=== PATIENT | female | born 1945 | race Caucasian/White ===

== ENCOUNTER 2019-11-09 18:54 | Inpatient (IN) | payer OTHER, MEDICAID ==
[~2019-11-09] VITALS: Ht 152.4 cm; Wt 44.9 kg
[2019-11-09 19:05] VITALS: BP_SYST 142
--- NOTE | 2019-11-09 20:13 | NUR ---
Placed in room 07 . Placed on landfill gas plant field technician, blood pressure machine and pulse oximeter. To gown for exam. Side rails up. Report given to MELISSA DUNBAR
[2019-11-09] MEDS ORDERED: NS 1000 ML IV.SOLN IV ONE (20:30)
[2019-11-09] MEDS ORDERED: ACETAMINOPHEN 500 MG TABLET PO ONE (20:30)
--- NOTE | 2019-11-09 20:33 | NUR ---
Pt BIB EMS from [facility] with c/o fever and tachycardia. Pt nonverbal. Per daughter, pt baseline is eye tracking and smiling to daughter voice. Per EMS, pt was treated for UTI last week. Per EMS, pt has temperature of 101.6 en route. Pt arrives on 12L non-rebreather. Upon assessment, pt diaphoretic with use of accessory muscles with rhonci noted bilaterally. Will continue to monitor.
--- NOTE | 2019-11-09 20:57 | NUR ---
ER Dr. Craig at bedside examining patient.
--- NOTE | 2019-11-09 21:09 | NUR ---
PATIENT MOVED TO BED 1
[2019-11-09] MEDS ORDERED: ACETAMINOPHEN 650 MG SUPP.RECT RC ONE (21:15)
--- NOTE | 2019-11-09 21:16 | NUR ---
RT at bedside to assist with pt intubation.
--- NOTE | 2019-11-09 21:24 | NUR ---
Patient arrived with POLST stating DNR, family at bedside. Family requests change to full code. MD Craig at bedside. Respiratory therapy at bedside prior to placement. Size 7.5 ET tube placed by MD Craig. Cuff inflated with 7 cc air. Auscultation of breath sounds over bilateral chest wall. ET tube secured with holister. O2 sats 98% pulse ox. PCXR ordered to check tube placement.
[2019-11-09 21:39] LABS: HEMATOCRIT 47.2 % (36-48); HEMOGLOBIN 15.4 g/dL (12.0-16.0); MEAN CORPUSCULAR HEMOGLOBIN 31 pg (27-31); MEAN CORPUSCULAR HGB CONC 33 % (32-36); MEAN CORPUSCULAR VOLUME 96 fL (79.0-98.0); PLATELET COUNT (AUTO) 379 K/uL (130-430); RED BLOOD CELL COUNT(AUTO) 4.92 MIL/uL (4.2-6.2); RED CELL DISTRIBUTION WIDTH 16.5 % (9.0-15.0); WHITE BLOOD COUNT (AUTO) 29.7 K/uL (4.8-10.8)
--- NOTE | 2019-11-09 21:45 | NUR ---
MELISSA Jaramillo placed # 16 FR OG tube to pt. Placement checked by auscultation of instilled air into stomach and aspiration of gastric contents. Tubing taped in place to prevent dislodging. Patient tolerated well.
--- NOTE | 2019-11-09 21:47 | NUR ---
radiology at bedside.
[2019-11-09 21:56] LABS: ATYPICAL LYMPHOCYTES % 0 % (0-0); BASOPHILS % (MANUAL) 0 % (0-2); EOSINOPHILS % (MANUAL) 0 % (0-7); LYMPHOCYTES % (MANUAL) 6 % (20-46); METAMYELOCYTES % 2 % (0-0); MONOCYTES % (MANUAL) 5 % (0-11)
[2019-11-09 21:59] LABS: BAND % (MANUAL) 43 % (0-6)
--- NOTE | 2019-11-09 22:14 | NUR ---
Pt cleaned and bed linens changed. Pt tolerated well. Will continue to monitor.
[2019-11-09 22:28] LABS: ANION GAP 15 (5-15); CALCIUM 9.7 mg/dL (8.4-11.0); CREATININE 1.18 mg/dL (0.55-1.30); GLUCOSE 139 mg/dL (70-99); POTASSIUM 3.6 mmol/L (3.5-5.1); UREA NITROGEN, BLOOD 48 mg/dL (8-21)
[2019-11-09 22:33] LABS: ALANINE AMINOTRANSFERASE 34 U/L (12-78); ALBUMIN 3.4 g/dL (3.4-4.8); ASPARTATE AMINOTRANSFERASE 36 U/L (10-37); TOTAL BILIRUBIN 2.4 mg/dL (0.0-1.0)
--- NOTE | 2019-11-09 22:52 | NUR ---
# 16 FR Culver catheter with use of sterile technique. Bedside drainage bag placed below level of bladder. Patient unable to toilet self.
[2019-11-09 22:53] LABS: CHLORIDE 125 mmol/L (98-107); SODIUM SERUM 162 mmol/L (136-145)
[2019-11-09] MEDS ORDERED: VANCOMYCIN HCL 1,000 MG in NS 250 ML IV ONE (23:45)
[2019-11-09] MEDS ORDERED: PIPERACILLIN/TAZO 3.375 GM in NS 50 ML IV ONE (23:45)
[2019-11-10] VITALS (36 sets, daily range): BP systolic 86–148
[2019-11-10] MEDS ORDERED: ACET-2165 PO (00:12)
[2019-11-10] MEDS ORDERED: DOCU-144 PO (00:12)
[2019-11-10] MEDS ORDERED: VITD2000 PO (00:12)
[2019-11-10] MEDS ORDERED: FAMO20TA8 PO (00:12)
[2019-11-10] MEDS ORDERED: HYDR-4272 PO (00:12)
[2019-11-10] MEDS ORDERED: MULT-976 PO (00:12)
[2019-11-10] MEDS ORDERED: MOM PO (00:12)
[2019-11-10] MEDS ORDERED: ASCO500T20 PO (00:12)
[2019-11-10] MEDS ORDERED: LACT1CAP7 PO (00:12)
[2019-11-10] MEDS ORDERED: ONDA4TAB5 PO (00:12)
[2019-11-10] MEDS ORDERED: ZINC220T4 PO (00:12)
[2019-11-10] MEDS ORDERED: ARGI1POW17 PO (00:12)
[2019-11-10] MEDS ORDERED: SERT-131 PO (00:12)
[2019-11-10] MEDS ORDERED: NA P133E41 RC (00:12)
[2019-11-10] MEDS ORDERED: 0.45% NACL 1,000 ML IV SCH (00:12)
--- NOTE | 2019-11-10 00:13 | NUR ---
Medication reconciliation completed with information provided by fidencio marc order summary report. Any prior medication reconciliation on file was reviewed and corrected.
[2019-11-10] MEDS ORDERED: PANTOPRAZOLE SODIUM 40 MG/VIAL (PROTONIX) IVP ONE (00:15)
[2019-11-10] MEDS ORDERED: ACETAMINOPHEN 650 MG SUPP.RECT RC PRN (00:15)
--- NOTE | 2019-11-10 00:24 | NUR ---
Patient will be admitted to [facility]. Admitted to ICU unit. Will go to room ICU 7. Belongings list completed. Complete and up to date summary report printed. SBAR report to be given at bedside with opportunity for questions.
--- NOTE | 2019-11-10 00:34 | NUR ---
Transfer to ICU 7 via ACLS protocol. Licensed nurse present. IV present no signs or symptoms of infiltration.
[2019-11-10 00:45] LABS: BILIRUBIN,URINE 2+ (NEGATIVE); BLOOD, URINE 3+ (NEGATIVE); CLARITY/URINE SL CLOUDY (CLEAR); COLOR,URINE YELLOW (YELLOW); GLUCOSE,URINE NEGATIVE (NEGATIVE); KETONES,URINE NEGATIVE (NEGATIVE); LEUKOCYTE ESTERASE ,URINE 2+ (NEGATIVE); NITRITE, URINE NEGATIVE (NEGATIVE); PROTEIN URINE 2+ (NEGATIVE)
[2019-11-10] MEDS ORDERED: PIPERACILLIN/TAZOBACTAM 3.375 GM/VIAL (ZOSYN) IV ONE (00:56)
[2019-11-10] MEDS ORDERED: VANCOMYCIN HCL 1000 MG/VIAL IV ONE (00:57)
--- NOTE | 2019-11-10 01:15 | NUR ---
ICU ADMIT Pt is awake but only responsive to tactile stimuli. Pt is on the vent, tolerating current vent settings. ST on monitor. Multiple wounds noted. OG in place. Culver catheter in place and draining to gravity. IV to right hand 22g, and right AC 22g. Safety precautions in place, call light within reach. Will continue to monitor.
[2019-11-10 01:18] LABS: BACTERIA,URINE MANY /HPF (None Seen); WBC,URINE >100 /HPF (0-3)
--- NOTE | 2019-11-10 02:35 | NUR ---
SPOKE TO DR. ONUR MAYA aware of patients current vent settings and VSS. MD ordered to keep sat above 92% and ABG's in the morning. Current vent settings okay at this time. Will continue to monitor.
[2019-11-10] MEDS ORDERED: NACL IV ONE (07:15)
--- NOTE | 2019-11-10 07:30 | NUR ---
Opening Note Patient received awake and is easily arousable. Patient on collections manager with NSR. Patient intubated and on ventilator with settings AC 12, tidal volume 400, FiO2 50% breathing evenly and unlabored. Patient has two peripheral IV sites receiving fluids at this time. Patient with OGT patent and clamped. Patient has a cardenas catheter draining yellow urine at this time. Skin non-intact. Safety precautions enforced.
[2019-11-10 07:52] LABS: BASOPHILS % (AUTO) 0.1 % (0.0-2.0); EOSINOPHILS % (AUTO) 0.1 % (0.0-4.0); HEMOGLOBIN 12.6 g/dL (12.0-16.0); LYMPHOCYTES # (AUTO) 1.6 K/uL (1.0-5.5); LYMPHOCYTES % (AUTO) 5.7 % (20.5-51.5); MEAN CORPUSCULAR HEMOGLOBIN 31 pg (27-31); MEAN CORPUSCULAR HGB CONC 32 % (32-36); MEAN CORPUSCULAR VOLUME 96 fL (79.0-98.0); MONOCYTES # (AUTO) 0.7 K/uL (0.0-1.0); MONOCYTES % (AUTO) 2.7 % (1.7-9.3); NEUTROPHILS # (AUTO) 25.3 K/uL (1.8-7.7); NEUTROPHILS % (AUTO) 91.4 % (40.0-70.0); PLATELET COUNT (AUTO) 234 K/uL (130-430); RED BLOOD CELL COUNT(AUTO) 4.05 MIL/uL (4.2-6.2); RED CELL DISTRIBUTION WIDTH 16.5 % (9.0-15.0); WHITE BLOOD COUNT (AUTO) 27.7 K/uL (4.8-10.8)
[2019-11-10 08:06] LABS: ANION GAP 11 (5-15); CALCIUM 8.6 mg/dL (8.4-11.0); CREATININE 1.09 mg/dL (0.55-1.30); GLUCOSE 109 mg/dL (70-99); POTASSIUM 3.1 mmol/L (3.5-5.1); UREA NITROGEN, BLOOD 44 mg/dL (8-21)
[2019-11-10 08:17] LABS: ALANINE AMINOTRANSFERASE 24 U/L (12-78); ALBUMIN 2.5 g/dL (3.4-4.8); ASPARTATE AMINOTRANSFERASE 25 U/L (10-37); TOTAL BILIRUBIN 2.7 mg/dL (0.0-1.0)
[2019-11-10 08:18] LABS: SODIUM SERUM 161 mmol/L (136-145)
[2019-11-10 08:19] LABS: CHLORIDE 128 mmol/L (98-107)
--- NOTE | 2019-11-10 08:26 | NUR ---
FLIGHT PURSER PAGED PAGED KEELEY MELO AT [phone] SPOKE [facility] DINA.
--- NOTE | 2019-11-10 08:29 | NUR ---
INTERNAL MEDICINE CALLED TIGIST CAMPO PAGED AT [phone] SPOKE WITH ANNALISE.
--- NOTE | 2019-11-10 09:41 | NUR ---
Nutrition Update Garland Scale 13 noted. Pt admitted for acute respiratory failure, pneumonia, UTI. Diet: NPO BMI: 19.3 kg/m2 RD to follow per nutrition care standards.
--- NOTE | 2019-11-10 09:50 | NUR ---
MD Rounds Dr. Méndez at bedside for examination. New orders received.
[2019-11-10] MEDS ORDERED: POTASSIUM CHLORIDE 40 MEQ in D5W 250 ML IV ONE (10:15)
[2019-11-10] MEDS: D5W 1,000 ML IV SCH ×2 (10:25→21:35)
--- NOTE | 2019-11-10 12:00 | NUR ---
RN Rounds Patient resting in bed at this time. Patient in no signs of distress. Safety precautions enforced, call light in reach.
[2019-11-10] MEDS ORDERED: ONDANSETRON HCL 4 MG/2 ML VIAL IVP PRN (13:45)
[2019-11-10] MEDS: FAMOTIDINE PF 20 MG/2 ML VIAL IVP SCH (14:19)
--- NOTE | 2019-11-10 14:30 | NUR ---
Wound Care Wound care performed as ordered. New dressing c/d/i. Patient in no signs of distress at this time.
--- NOTE | 2019-11-10 16:00 | NUR ---
RN Rounds Patient remains resting at this time, no signs of acute distress noted.
[2019-11-10] MEDS ORDERED: IPRATROPIUM BROM 0.5 MG/2.5 ML VIAL.NEB (ATROVENT) INH PRN (18:15)
[2019-11-10] MEDS ORDERED: ALBUTEROL SULFATE 0.083% 2.5 MG/3 ML VIAL.NEB INH PRN (18:15)
[2019-11-10] MEDS: PIPERACILLIN/TAZO 2.25G/DEX-IS 50 ML IV SCH (18:22)
[2019-11-10] MEDS: ALBUTEROL SULFATE 0.083% 2.5 MG/3 ML VIAL.NEB INH SCH (19:00)
[2019-11-10] MEDS: IPRATROPIUM BROM 0.5 MG/2.5 ML VIAL.NEB (ATROVENT) INH SCH (19:00)
--- NOTE | 2019-11-10 19:34 | NUR ---
Opening Note: Patient received with HOB in upright position, oxygen saturation at 100%, no abnormal temperature, not complaining of pain, but in restraints due to interfering with her medical medical treatment. Will continue to monitor.
--- NOTE | 2019-11-10 19:42 | NUR ---
Closing Note Patient endorsed to assembler 1st shift RN using SBAR.
[2019-11-10] MEDS: LEVOFLOXACIN 250 MG/D5W 50 ML IV SCH (21:36)
[2019-11-11] VITALS (33 sets, daily range): BP systolic 84–148
[2019-11-11] MEDS: PIPERACILLIN/TAZO 2.25G/DEX-IS 50 ML IV SCH ×5 (00:14→23:53)
[2019-11-11] MEDS: IPRATROPIUM BROM 0.5 MG/2.5 ML VIAL.NEB (ATROVENT) INH SCH ×4 (01:09→19:00)
[2019-11-11] MEDS: ALBUTEROL SULFATE 0.083% 2.5 MG/3 ML VIAL.NEB INH SCH ×4 (01:09→19:00)
[2019-11-11] MEDS: D5W 1,000 ML IV SCH ×2 (06:31→18:00)
[2019-11-11 07:14] LABS: BASOPHILS # (AUTO) 0.1 K/uL (0.0-0.2); BASOPHILS % (AUTO) 0.2 % (0.0-2.0); EOSINOPHILS # (AUTO) 0.3 K/uL (0.0-0.4); EOSINOPHILS % (AUTO) 1.4 % (0.0-4.0); HEMATOCRIT 30.7 % (36-48); HEMOGLOBIN 10.3 g/dL (12.0-16.0); LYMPHOCYTES # (AUTO) 1.7 K/uL (1.0-5.5); LYMPHOCYTES % (AUTO) 7.5 % (20.5-51.5); MEAN CORPUSCULAR HEMOGLOBIN 32 pg (27-31); MEAN CORPUSCULAR HGB CONC 33 % (32-36); MEAN CORPUSCULAR VOLUME 95 fL (79.0-98.0); MONOCYTES # (AUTO) 0.6 K/uL (0.0-1.0); MONOCYTES % (AUTO) 2.6 % (1.7-9.3); NEUTROPHILS # (AUTO) 19.9 K/uL (1.8-7.7); PLATELET COUNT (AUTO) 188 K/uL (130-430); RED BLOOD CELL COUNT(AUTO) 3.24 MIL/uL (4.2-6.2); RED CELL DISTRIBUTION WIDTH 16.4 % (9.0-15.0); WHITE BLOOD COUNT (AUTO) 22.5 K/uL (4.8-10.8)
[2019-11-11 07:27] LABS: ALANINE AMINOTRANSFERASE 18 U/L (12-78); ANION GAP 11 (5-15); ASPARTATE AMINOTRANSFERASE 25 U/L (10-37); CALCIUM 8.1 mg/dL (8.4-11.0); CHLORIDE 116 mmol/L (98-107); GLUCOSE 102 mg/dL (70-99); SODIUM SERUM 147 mmol/L (136-145); TOTAL BILIRUBIN 1.7 mg/dL (0.0-1.0); UREA NITROGEN, BLOOD 27 mg/dL (8-21)
[2019-11-11 07:38] LABS: POTASSIUM 2.9 mmol/L (3.5-5.1)
[2019-11-11 07:43] LABS: NEUTROPHILS % (AUTO) 88.3 % (40.0-70.0)
--- NOTE | 2019-11-11 08:00 | NUR ---
PATIENT WAS ACCEPTED ORAL INTUBATED ALSO BILATERAL SOFT WRIST RESTRAINT , NEEDED PATIENT WILL PULL OUT TUBE AND LINE , COLOR PALE SKIN WARM AND DRY PATIENT WILL RESPOND TO VEBRAL COMMANDS WILL NODE HER HEAD NOTICE LEAKAGE OF THE A/C INT, WILL PULL OUT, HAS AN UPPER PICC LINE AND RIGHT HAND NO22G, ALL PATENT , STABLE 1200 NO CHANGES FAMILY AT BEDSIDE, ALARMING THE VENT NO SEDATION , WILL CALL DOCTOR ANIA SEDATION MEDS ORDER ATIVAN ONE MG IV Q ONE HR. 1630 ATIVAN ONE MG IV GIVEN 1730 REPEAT ATAVIN ONE MG IV WAS GIVEN , STABLE WILL CONTINUED WITH PLAN OF CARE, STABLE PATIENT WAS POSITIVE FOR MRSA OF THE NARE WAS PLACE IN ISOLATION , STABLE
--- NOTE | 2019-11-11 09:05 | NUR ---
RT NOTES Vent settings to Vt 360 35% per Dr Sifuentes's order.
[2019-11-11] MEDS ORDERED: POTASSIUM CHLORIDE 40 MEQ in D5W 250 ML IV ONE (12:30)
[2019-11-11] MEDS: LORazepam 2 MG/ML VIAL IVP PRN ×2 (16:27→17:26)
[2019-11-11] MEDS: FAMOTIDINE PF 20 MG/2 ML VIAL IVP SCH (16:36)
--- NOTE | 2019-11-11 19:35 | NUR ---
Opening Note: Patient received via SBAR supine with HOB in upright position, bed in lowest setting to the floor, with bilateral wrist restraints. Patient is not speaking nor answering questions, and does not appear to be in any pain.(FLACC SCALE) Sinus Rhythm, Normal Respirations, Oxygen Saturation at 100%. Will continue to monitor.
[2019-11-11] MEDS: LEVOFLOXACIN 250 MG/D5W 50 ML IV SCH (20:37)
[2019-11-12] VITALS (35 sets, daily range): BP systolic 90–148
--- NOTE | 2019-11-12 04:00 | NUR ---
Wound Documentation: Pictures were taken of patient's wounds and will be filed.
--- NOTE | 2019-11-12 04:17 | NUR ---
CHG Bath CHG Bed Bath provided to patient along with repositioning, oral care, change of linens, and oral and Endotracheal suctioning. Patient tolerated care well. Will continue to monitor.
--- NOTE | 2019-11-12 07:15 | NUR ---
ENDORSEMENT Pt care endorsed to dayshift nurse using nursing SBAR.
[2019-11-12] MEDS: PIPERACILLIN/TAZO 2.25G/DEX-IS 50 ML IV SCH ×3 (07:29→17:24)
[2019-11-12] MEDS: D5W 1,000 ML IV SCH ×3 (07:30→22:28)
--- NOTE | 2019-11-12 07:30 | NUR ---
AM ASSESSMENT. PT MECHANICALLY VENTILATED, FIO2 35%, EYES OPENED TO TACTILE STIMULI, RESTRAINTS OFF, TEMP TAKEN IN NORMAL RANGE, ORAL HYGIENE RENDERED, IVF D5 WATER AT 100 ML PER HR, PICC IN PLACE, SITE CLEAR AND PATENT. LAW CATHETER DRAINING WELL. TURNED PT TO HER SIDE, INCONTINENT OF BOWEL, MODERATE AMOUNT, LOOSE IN CONSISTENCY , GOOD PERICARE DONE.
[2019-11-12] MEDS: ALBUTEROL SULFATE 0.083% 2.5 MG/3 ML VIAL.NEB INH SCH ×3 (07:55→19:57)
[2019-11-12] MEDS: IPRATROPIUM BROM 0.5 MG/2.5 ML VIAL.NEB (ATROVENT) INH SCH ×3 (07:55→19:57)
--- NOTE | 2019-11-12 08:19 | NUR ---
RT NOTES Per Dr Sifuentes's order FIO2 to 30%. No adverse reactions noted.
--- NOTE | 2019-11-12 09:00 | NUR ---
FAMILY. MET PT'S SON MELINDA, SAID HE HAD NOT SEEN HER FOR OVER A YEAR, HIS SISTER RONNIE HAD CALLED HIM ABOUT HER. CURRENT PT'S STATUS GIVEN.
[2019-11-12 09:56] LABS: BASOPHILS % (AUTO) 0.3 % (0.0-2.0); EOSINOPHILS # (AUTO) 0.4 K/uL (0.0-0.4); EOSINOPHILS % (AUTO) 3.1 % (0.0-4.0); HEMATOCRIT 30.7 % (36-48); HEMOGLOBIN 10.1 g/dL (12.0-16.0); LYMPHOCYTES # (AUTO) 1.9 K/uL (1.0-5.5); LYMPHOCYTES % (AUTO) 13.3 % (20.5-51.5); MEAN CORPUSCULAR HEMOGLOBIN 31 pg (27-31); MEAN CORPUSCULAR HGB CONC 33 % (32-36); MEAN CORPUSCULAR VOLUME 95 fL (79.0-98.0); MONOCYTES # (AUTO) 0.5 K/uL (0.0-1.0); MONOCYTES % (AUTO) 3.6 % (1.7-9.3); NEUTROPHILS # (AUTO) 11.1 K/uL (1.8-7.7); NEUTROPHILS % (AUTO) 79.7 % (40.0-70.0); PLATELET COUNT (AUTO) 173 K/uL (130-430); RED BLOOD CELL COUNT(AUTO) 3.23 MIL/uL (4.2-6.2); WHITE BLOOD COUNT (AUTO) 13.9 K/uL (4.8-10.8)
[2019-11-12 10:13] LABS: ALANINE AMINOTRANSFERASE 22 U/L (12-78); ALBUMIN 2.1 g/dL (3.4-4.8); ANION GAP 9 (5-15); ASPARTATE AMINOTRANSFERASE 27 U/L (10-37); CHLORIDE 109 mmol/L (98-107); CREATININE 0.61 mg/dL (0.55-1.30); GLUCOSE 83 mg/dL (70-99); POTASSIUM 3.3 mmol/L (3.5-5.1); SODIUM SERUM 140 mmol/L (136-145); UREA NITROGEN, BLOOD 12 mg/dL (8-21)
[2019-11-12] MEDS: MUPIROCIN 1 GM OIN.PF.APP NS SCH ×2 (11:26→22:30)
[2019-11-12] MEDS ORDERED: POTASSIUM CHLORIDE 30 MEQ in NS 250 ML IV ONE (12:00)
--- NOTE | 2019-11-12 12:41 | NUR ---
Dietitian Recommendations *Initiate nutrition support/alternate route of feeding in 24-48 hrs. *Recommend Vital AF 1.2 at 35ml/hr, Lopez BID via NGT. *Swallow eval once extubated. Please see Nutritional Assessment for details. DAHLIA LINK
[2019-11-12] MEDS: FAMOTIDINE PF 20 MG/2 ML VIAL IVP SCH (14:01)
--- NOTE | 2019-11-12 15:20 | NUR ---
WOUNDS. DRESSINGS REMOVED FROM UPPER BACK AND BUTTOCKS. WOUND CARE DONE, WASHED WITH SALINE THEN PAT DRY, HYDROGEL APPLIED TO WOUNDS AND COVERED WITH FOAM DRESSING, TURNED PT Q2H, ORAL CARE DONE NEEDED.
--- NOTE | 2019-11-12 15:40 | NUR ---
FAMILY. PT'S DAUGHTER RONNIE CAME IN TO VISIT, STATUS UPDATE ON PT, MRSA PRECAUTION/AWARENESS GIVEN.
--- NOTE | 2019-11-12 19:10 | NUR ---
REPORT. GIVEN TO ONCOMING NURSE.
--- NOTE | 2019-11-12 19:25 | NUR ---
OPENING NOTE SBAR REPORT RECEIVED FROM LOPEZ TORRES. CARE ASSUMED. PT ANO X1. PT LAYING IN BED INTUBATED. ETT SIZE 7.0 LIP LINE 21 VENT SETTINGS AC 12 TIDAL VOLUME 360 FiO2 30%. O2 SATURATION 100%. PT SINUS RHYTHM ON MONITOR. PT HAS RUE PICC LINE RUNNING D5W @ 70 CC/HR. PEDAL AND RADIAL PULSES NORMAL. PT HAS OG TUBE IN PLACE CLAMPED. ABDOMEN SOFT NON DISTENDED. PT HAS LAW CATHETER FLOWING TO GRAVITY. URINE CLEAR AND YELLOW. WOUND TO SACRUM AND RIGHT HIP AND RIGHT BUTTOCKS. DRESSINGS CLEAN DRY AND INTACT. BED LOCK IN LOWEST POSITION. SAFETY PRECAUTIONS IN PLACE. CALL LIGHT WITHIN REACH WILL CONTINUE TO MONITOR.
[2019-11-12] MEDS: LEVOFLOXACIN 250 MG/D5W 50 ML IV SCH (22:28)
[2019-11-13] VITALS (29 sets, daily range): BP systolic 95–157
[2019-11-13] MEDS: PIPERACILLIN/TAZO 2.25G/DEX-IS 50 ML IV SCH ×4 (00:59→17:12)
[2019-11-13] MEDS: IPRATROPIUM BROM 0.5 MG/2.5 ML VIAL.NEB (ATROVENT) INH SCH ×2 (01:20→19:48)
[2019-11-13] MEDS: ALBUTEROL SULFATE 0.083% 2.5 MG/3 ML VIAL.NEB INH SCH ×2 (01:30→19:48)
[2019-11-13 06:01] LABS: BASOPHILS % (AUTO) 0.1 % (0.0-2.0); EOSINOPHILS # (AUTO) 0.2 K/uL (0.0-0.4); EOSINOPHILS % (AUTO) 2.6 % (0.0-4.0); HEMATOCRIT 31.8 % (36-48); HEMOGLOBIN 10.7 g/dL (12.0-16.0); LYMPHOCYTES # (AUTO) 1.5 K/uL (1.0-5.5); LYMPHOCYTES % (AUTO) 17.2 % (20.5-51.5); MEAN CORPUSCULAR HEMOGLOBIN 32 pg (27-31); MEAN CORPUSCULAR HGB CONC 34 % (32-36); MEAN CORPUSCULAR VOLUME 94 fL (79.0-98.0); MONOCYTES # (AUTO) 0.6 K/uL (0.0-1.0); MONOCYTES % (AUTO) 6.9 % (1.7-9.3); NEUTROPHILS # (AUTO) 6.2 K/uL (1.8-7.7); NEUTROPHILS % (AUTO) 73.2 % (40.0-70.0); PLATELET COUNT (AUTO) 189 K/uL (130-430); RED BLOOD CELL COUNT(AUTO) 3.39 MIL/uL (4.2-6.2); RED CELL DISTRIBUTION WIDTH 15.8 % (9.0-15.0); WHITE BLOOD COUNT (AUTO) 8.4 K/uL (4.8-10.8)
[2019-11-13 06:19] LABS: ALANINE AMINOTRANSFERASE 23 U/L (12-78); ANION GAP 8 (5-15); ASPARTATE AMINOTRANSFERASE 23 U/L (10-37); CHLORIDE 108 mmol/L (98-107); CREATININE 0.56 mg/dL (0.55-1.30); GLUCOSE 102 mg/dL (70-99); SODIUM SERUM 139 mmol/L (136-145); TOTAL BILIRUBIN 2.1 mg/dL (0.0-1.0); UREA NITROGEN, BLOOD 6 mg/dL (8-21)
[2019-11-13 06:22] LABS: POTASSIUM 2.7 mmol/L (3.5-5.1)
--- NOTE | 2019-11-13 07:20 | NUR ---
CLOSING NOTE PT LAYING IN BED. PT INTUBATED. VENT SETTINGS AC 12, TV 360, FIO2 30%. PT O2 SATURATION 100%. NO SIGNS OR SYMPTOMS OF DISTRESS NOTED. SBAR REPORT GIVEN TO LOPEZ TORRES. CARE ENDORSED.
--- NOTE | 2019-11-13 07:30 | NUR ---
CLOSING NOTE PT LAYING IN BED. NO SIGNS OR SYMPTOMS OF DISTRESS NOTED. SBAR REPORT GIVEN TO LOPEZ TORRES. CARE ENDORSED. Addendum: 11/13/19 at 0746 by Rebecca Guillermo RN DISREGARD NOTE. CHARTED IN ERROR.
--- NOTE | 2019-11-13 07:50 | NUR ---
AM ASSESSMENT. PT AWAKE, ARM SHAKING AND TRIED TO REACH TOWARDS HER FACE, REPOSITIONED PT, BLANKET COVERED THE CHEST PART TO KEEP PATIENT FROM TOUCHING HER TUBE. ORAL CARE DONE, MODERATE TO LARGE AMOUNT OF SECRETIONS NOTED, ET TUBE INTACT.
[2019-11-13] MEDS ORDERED: POTASSIUM CHLORIDE 40 MEQ in NS 250 ML IV ONE (08:00)
[2019-11-13] MEDS: D5W 1,000 ML IV SCH ×2 (08:14→20:23)
[2019-11-13] MEDS: MUPIROCIN 1 GM OIN.PF.APP NS SCH ×2 (08:57→20:25)
[2019-11-13] MEDS: LORazepam 2 MG/ML VIAL IVP PRN (09:12)
--- NOTE | 2019-11-13 09:12 | NUR ---
ANXIETY. ATIVAN 1 MG IVP GIVEN, PT ATTEMPTED TO PULL HER TUBE OUT, COVERED HER HANDS/ARMS WITH HEAVY BLANKETS.
[2019-11-13] MEDS ORDERED: POTASSIUM CHLORIDE 20 MEQ TAB.PRT.SR NG ONE (10:15)
--- NOTE | 2019-11-13 10:50 | NUR ---
VENT DR BARBER CAME IN WITH NEW ORDERS RECEIVED, VENT MODE TO [facility].
--- NOTE | 2019-11-13 12:00 | NUR ---
NURSING. PT AFEBRILE, GENTLE ORAL SUCTIONING DONE VIA YANKAUER, REPOSITIONED IN BED, HEAD OF BED ELEVATED TO PREVENT ASPIRATION.
--- NOTE | 2019-11-13 13:40 | NUR ---
CONSULT PALLIATIVE CARE CONSULTING MD: Luiza TAYLOR SPOKE TO: DIALED: [phone] ORDERED BY: DR. JORGE
--- NOTE | 2019-11-13 14:00 | NUR ---
HYGIENE. TURNED AND REPOSITIONED PT, HAD LARGE SOFT STOOL, INCONTINENT CARE DONE. WOUND DRESSING REMOVED, CONTRACT NEGOTIATOR AT BEDSIDE, WOUND CARE DONE, FOAM DRESSING APPLIED TO COVER.
[2019-11-13] MEDS: FAMOTIDINE PF 20 MG/2 ML VIAL IVP SCH (14:07)
--- NOTE | 2019-11-13 15:20 | NUR ---
WOUND EVALUATION: Wound Consult received from Dr. Barger. Thank you, Dr. Barger, for the consult. Patient received in a Inder Bed in touch bed with an Isoflex SELENA mattress low air loss therapy, awake, nonverbal, nonresponsive to verbal commands. Patient is unable to turn in bed independently. Garland Score is a 10. Past Medical History: Severe Dementia, history of Urinary Tract Infection, Gastro-Esophageal Reflux Disease, Depression, Dysphagia. Recent Labs: WBC 8.4, RBC 3.8 9, 3.39, hemoglobin 10.7, hematocrit 31.8, potassium 2.7, chloride 108, BUN 6, creatinine 0.56, glucose 102, calcium 8.0, serum total protein 6.1, albumin 2.0. Microbiology: Blood culture results 2 in progress. Endotracheal sputum culture results positive for Klebsiella pneumoniae MDRO/ESBL. MRSA screen results positive. Urine culture results negative. Intrinsic factors that delay wound healing: Dysphagia, hypoalbuminemia. Extrinsic factors that delay wound healing: Immobility. Wound Assessment: 1. Right Lateral Hip at Greater Trochanter: Unstageable pressure ulcer, present on admission. Wound bed has 90% yellow slough, 10% red tissue. No odor, no drainage. Periwound intact. Wound measures 1.3 cm x 1.0 cm x 0.9 cm. Recommend: Cleanse wound with normal saline. Apply moisture barrier cream to amanda-wound. Apply Venelex ointment to wound bed. Cover with 4x4 foam dressing. Perform wound care daily, and as needed for dressing soiling or dislodgement. 2. Sacral-Coccygeal area: Unstageable pressure ulcer, present on admission. Wound bed has 60% yellow tissue, 40% red tissue. No odor, no drainage. Periwound white/macerated. Surrounding tissue has blanchable red erythema. Tunneling present at 2 o'clock measuring 0.5 cm. Wound measures 2.0 cm x 2.0 cm x 0.3 cm. 3. Right Sacral area: Unstageable pressure ulcer, present on admission. Wound bed has 30% yellow tissue, 7% red tissue. No odor, no drainage. Periwound white/macerated. Surrounding tissue has blanchable red erythema. Tunneling present at 7 o'clock measuring 0.2 cm. Wound measures 0.4 cm x 1.1 cm x 0.2 cm. Recommend: Cleanse wounds with normal saline. Apply moisture barrier cream to amanda-wounds. Apply Venelex ointment to wound beds. Cover sites with Sacral foam dressing. Perform wound care daily, and as needed for dressing soiling or dislodgement. 4. Right Posterior Mid Thoracic Spine area: Scar tissue, present on admission. Recommend: Cover site with foam dressing. Offload site at all times. Also recommend: Reposition patient side to side only every 2 hours with pillow support and off-load pressure areas with pillows for pressure re-distribution. Offload, elevate and float bilateral heels with one pillow lengthwise under each extremity at all times. Perform skin care and monitor skin integrity Q shift. Use moisture barrier cream on buttocks and other moisture susceptible areas QID and as needed for soiling. Maintain patient on a low air-loss mattress.
--- NOTE | 2019-11-13 18:00 | NUR ---
FAMILY. PT'S DAUGHTER CAME IN TO VISIT, STATUS UPDATE PROVIDED, PALLIATIVE CARE CONSULT RECEIVED.
--- NOTE | 2019-11-13 19:10 | NUR ---
OPENING NOTE SBAR REPORT RECEIVED FROM LOPEZ TORRES. CARE ASSUMED. PT ANO X1. PT LAYING IN BED INTUBATED. ETT SIZE 7.0 LIP LINE 21 VENT SETTINGS SIMV 10 TIDAL VOLUME 360 FiO2 30% PEEP 5.0 PRESSURE SUPPORT 10. O2 SATURATION 100%. PT SINUS TACH ON MONITOR. HEART RATE OF 111. PT HAS RUE PICC LINE RUNNING D5W @ 70 CC/HR. PEDAL AND RADIAL PULSES NORMAL. PT HAS OG TUBE IN PLACE RUNNING JEVITY 1.2 @ 20 CC/HR GOAL OF 50CC/HR. ABDOMEN SOFT NON DISTENDED. PT HAS LAW CATHETER FLOWING TO GRAVITY. URINE CLEAR AND YELLOW. WOUND TO SACRUM AND RIGHT HIP AND RIGHT BUTTOCKS. DRESSINGS CLEAN DRY AND INTACT. BED LOCK IN LOWEST POSITION. SAFETY PRECAUTIONS IN PLACE. CALL LIGHT WITHIN REACH WILL CONTINUE TO MONITOR.
[2019-11-13] MEDS: LINEZOLID 300 ML IV SCH (20:23)
[2019-11-14] VITALS (26 sets, daily range): BP systolic 86–140
[2019-11-14] MEDS: ALBUTEROL SULFATE 0.083% 2.5 MG/3 ML VIAL.NEB INH SCH ×3 (01:12→19:30)
[2019-11-14] MEDS: IPRATROPIUM BROM 0.5 MG/2.5 ML VIAL.NEB (ATROVENT) INH SCH ×3 (01:12→19:30)
[2019-11-14] MEDS: PIPERACILLIN/TAZO 2.25G/DEX-IS 50 ML IV SCH ×4 (01:17→18:00)
[2019-11-14 05:56] LABS: BASOPHILS % (AUTO) 0.1 % (0.0-2.0); EOSINOPHILS # (AUTO) 0.2 K/uL (0.0-0.4); EOSINOPHILS % (AUTO) 1.8 % (0.0-4.0); HEMATOCRIT 31.2 % (36-48); HEMOGLOBIN 10.6 g/dL (12.0-16.0); LYMPHOCYTES # (AUTO) 1.9 K/uL (1.0-5.5); LYMPHOCYTES % (AUTO) 17.8 % (20.5-51.5); MEAN CORPUSCULAR HEMOGLOBIN 32 pg (27-31); MEAN CORPUSCULAR HGB CONC 34 % (32-36); MEAN CORPUSCULAR VOLUME 94 fL (79.0-98.0); MONOCYTES # (AUTO) 1.1 K/uL (0.0-1.0); MONOCYTES % (AUTO) 10.1 % (1.7-9.3); NEUTROPHILS # (AUTO) 7.3 K/uL (1.8-7.7); NEUTROPHILS % (AUTO) 70.2 % (40.0-70.0); PLATELET COUNT (AUTO) 219 K/uL (130-430); RED BLOOD CELL COUNT(AUTO) 3.33 MIL/uL (4.2-6.2); WHITE BLOOD COUNT (AUTO) 10.4 K/uL (4.8-10.8)
[2019-11-14 06:09] LABS: ALANINE AMINOTRANSFERASE 15 U/L (12-78); ANION GAP 8 (5-15); ASPARTATE AMINOTRANSFERASE 14 U/L (10-37); CALCIUM 8.1 mg/dL (8.4-11.0); CHLORIDE 103 mmol/L (98-107); CREATININE 0.63 mg/dL (0.55-1.30); GLUCOSE 114 mg/dL (70-99); POTASSIUM 3.2 mmol/L (3.5-5.1); SODIUM SERUM 133 mmol/L (136-145); UREA NITROGEN, BLOOD 6 mg/dL (8-21)
--- NOTE | 2019-11-14 07:20 | NUR ---
Opening Note Received report from prevention rn RN. Pt lethargic, opens eyes to name, does not track. No obvious signs of pain or distress noted at this time.
--- NOTE | 2019-11-14 07:33 | NUR ---
CLOSING NOTE PT LAYING IN BED INTUBATED. VENT SETTINGS SIMV 10 TV 360 FiO2 30% PEEP 5 AND PS 10. O2 SATURATION 100%. NO SIGNS OR SYMPTOMS OF DISTRESS NOTED. SBAR REPORT GIVEN TO DOUG TORRES. CARE ENDORSED.
[2019-11-14] MEDS ORDERED: BALSAM PERU/CASTOR OIL 60 GM OINT...G. TP SCH (09:00)
[2019-11-14] MEDS: LINEZOLID 300 ML IV SCH (09:18)
[2019-11-14] MEDS: MUPIROCIN 1 GM OIN.PF.APP NS SCH (09:19)
[2019-11-14] MEDS ORDERED: 0.45% NACL 1,000 ML IV SCH (10:15)
[2019-11-14] MEDS ORDERED: ENOXAPARIN SODIUM 30 MG/0.3 ML SYRINGE SUBCUT SCH (11:00)
--- NOTE | 2019-11-14 11:03 | NUR ---
SS NOTES: PHYSICAL THERAPY INSTRUCTOR attempted to meet with family at bedside. No family has visited today and SS will be informed by ICU when family comes by. Addendum: 11/14/19 at 1200 by Bull Rapp MSW PHYSICAL THERAPY INSTRUCTOR was referred by nursing to discuss DPOA with family and palliative care. PHYSICAL THERAPY INSTRUCTOR met with daughter Nasima Garcia (p: [phone]) at bedside. Per daughter, pt does not have an advanced directive and Nasima has been making medical decisions for her. Prior to coming in, pt stayed at [facility] for 1 month and prior to that at [facility] for 3 months. Pt used to live with daughter prior to her admissions at SNFs. Pt has 4 sons, 3 of them are not involved in her care and estranged. Pt's sons are: Andrzej Francis (p: [phone]), Yazan Garcia (p: [phone]), Sheron Garcia (p: [phone]) and Oliverio Jose (no number obtained). PHYSICAL THERAPY INSTRUCTOR encouraged and educated daughter on the importance on having one pt personal service representative to make decisions for the patient, which the daughter states "they'll all say, whatever my sister decides". Dr. Herring from Palliative to meet with family today, it is scheduled for 14:00-15:00 today. Nasima inquired about the difference between palliative and hospice; PHYSICAL THERAPY INSTRUCTOR educated family on the difference. If pt is to be discharged to hospice, family does not have hospice preference but prefers for pt to go to Inpt Hospice or hospice at home. Nasima also verbalized concerns on how much care pt is going to need if home to hospice is what is indicated. Naisma has two underage children at home, and she might need as much help for her mom as possible; options are to be explored when time comes. SS will remain available for support and for questions when they arise.
[2019-11-14] MEDS ORDERED: LORazepam 2 MG/ML VIAL IVP PRN ×2 (11:15→17:45)
[2019-11-14] MEDS: POTASSIUM CHLORIDE 20 MEQ TAB.PRT.SR PO SCH ×2 (11:20→15:46)
[2019-11-14] MEDS ORDERED: KCL 20 mEq in 100 mL (PREMIX) 100 ML IV SCH (11:30)
[2019-11-14] MEDS ORDERED: ENOXAPARIN SODIUM 30 MG/0.3 ML SYRINGE SUBCUT ONE (12:00)
[2019-11-14] MEDS: FAMOTIDINE PF 20 MG/2 ML VIAL IVP SCH (12:33)
--- NOTE | 2019-11-14 14:22 | NUR ---
Code Status/Hospice Dr. Herring at bedside discussing with pt's family member about hospice. Per Dr. Herring and pt's family, pt is DNR and agree to hospice evaluation. Code status signed and placed in chart.
--- NOTE | 2019-11-14 14:53 | NUR ---
Hospice Received order for hospice evaluation and recommendation that patient may be appropriate for inpatient hospice, [facility]. Will fax patient's information to [facility], p [phone] f [phone]. Addendum: 11/14/19 at 1612 by Bull HARDY Peter from [facility] is in the process of contacting daughter to arrange for a meeting. SS will follow up.
--- NOTE | 2019-11-14 16:31 | NUR ---
Rounds/BM Pt in no signs of pain or distress. Pt noted with medium loose BM. Performed pericare and linen change. Repositioned pt. Pt tolerated well.
--- NOTE | 2019-11-14 17:40 | NUR ---
Report given to Peter TORRES for hospice. Also held antibiotic administration for 1800 per MD order. New orders received from Dr. Still and Dr. Barger, and informed about hospice discharge. Pt is to be terminally extubated prior to discharge.
[2019-11-14] MEDS ORDERED: MORPHINE 2 MG/ML INJ. SYRINGE IVP PRN (17:45)
--- NOTE | 2019-11-14 19:30 | NUR ---
Endorsed plan of care to material handler 2nd shift RN. Pt currently in no signs of pain or distress. [facility] [address] [facility] prior to [facility]. PRN medications ordered for pt if in distress.
--- NOTE | 2019-11-14 20:00 | NUR ---
ASSESSMENT Pt alert/orally intubated tolerating current vent settings. Oral gastric tube in place, with continuous feeding in progress. PICC line present right upper arm,dressing dry and intact no redness or swelling noted @ site. Culver catheter in use draining yellow color urine. Pt with multiple wounds, dressings all intact.
--- NOTE | 2019-11-14 20:45 | NUR ---
EXTUBATION Pt was given Morphine 1mg IVP per MD orders. Pt's feeding was then stopped and Pt was extubated. 3L/min oxymizer was then started. Pt's oxygen saturation is 97%.
--- NOTE | 2019-11-14 21:40 | NUR ---
MEDIC-1 Medic-1 here to transport patient to Hospice facility.
--- NOTE | 2019-11-14 22:00 | NUR ---
MEDIC-1 Medic-1 transporting patient to hospice. Report given to naval science teacher, along with transfer packet. Family at bedside.
== END 2019-11-14 22:00 | disposition hospice, inpatient (51) | DRG 870 ==
LOC: SED 18:54 → SIC 11-10 00:12
PROVIDERS: ADMIT Internal Medicine; ATTEND Internal Medicine
PROC: 5A1955Z Respiratory Ventilation, Greater than 96 Consecutive Hours (ICD-10-PCS; principal; 2019-11-10)
PROC: 0BH17EZ Insertion of Endotracheal Airway into Trachea, Via Natural or Artificial Opening (ICD-10-PCS; 2019-11-10)
PROC: B548ZZA Ultrasonography of Superior Vena Cava, Guidance (ICD-10-PCS; 2019-11-10)
PROC: 02HV33Z Insertion of Infusion Device into Superior Vena Cava, Percutaneous Approach (ICD-10-PCS; 2019-11-10)
DX: A41.9 Sepsis, unspecified organism (principal); J69.0 Pneumonitis due to inhalation of food and vomit; J96.00 Acute respiratory failure, unspecified whether with hypoxia or hypercapnia; R65.21 Severe sepsis with septic shock; E43 Unspecified severe protein-calorie malnutrition; J15.212 Pneumonia due to Methicillin resistant Staphylococcus aureus; N39.0 Urinary tract infection, site not specified; E87.0 Hyperosmolality and hypernatremia; Z68.1 Body mass index [BMI] 19.9 or less, adult; E87.6 Hypokalemia; E86.0 Dehydration; G30.9 Alzheimer's disease, unspecified; K21.9 Gastro-esophageal reflux disease without esophagitis; F02.80 Dementia in other diseases classified elsewhere, unspecified severity, without behavioral disturbance, psychotic disturbance, mood disturbance, and anxiety; F32.9 Major depressive disorder, single episode, unspecified; I50.9 Heart failure, unspecified; R13.10 Dysphagia, unspecified; Z66 Do not resuscitate; Z51.5 Encounter for palliative care; Z79.899 Other long term (current) drug therapy; Z74.01 Bed confinement status; Z86.73 Personal history of transient ischemic attack (TIA), and cerebral infarction without residual deficits; Z22.322 Carrier or suspected carrier of Methicillin resistant Staphylococcus aureus
CPT/HCPCS: 31500; 36415; 36600; 71045; 76770; 80053; 81000-TC; 82803-TC; 83605; 84443-TC; 84484; 85007; 85025; 85027; 87040-TC; 87070-TC; 87081; 87086; 87186-TC; 87205-TC; 93005; 94002; 94003; 94640; 96365; 96367; 99291; A6209; C1751; C9113; J1650; J1956; J2020; J2060; J2270; J2543; J3370; J3480; J3490; J7030; J7050; J7060; J7613